=== PATIENT | male | born 1960 | race Two or more races ===

== ENCOUNTER 2024-09-28 22:19 | Emergency (ER) | payer BC, OTHER ==
[2024-09-28 22:29] VITALS: BP 166/91; PULSE 86; RESP 18; TEMP 98.1; BMI 40.6
== END 2024-09-28 23:25 | disposition home or self-care (01) ==
LOC: JER 22:19
DX: R94.31 Abnormal electrocardiogram [ECG] [EKG] (principal)
CPT/HCPCS: 93005; 93010; 99283-25